=== PATIENT | male | born 1970 | race Caucasian/White ===

== ENCOUNTER 2016-10-07 01:55 | Emergency (ER) | payer SELFPAY ==
[~2016-10-07] VITALS: Ht 182.9 cm; Wt 93.2 kg
[~2016-10-07 01:55] MED LIST: ALBUTEROL0.09 MG/A1 IH; APRESOLINE 220 MG/ML IV; ATIVAN 2MG/ML2 MG/ML IV; AUGMENTIN 875 M1 TAB PO; AZITHROMYCIN250 MG PO; CEPHALEXIN500 M1 PO; ELAVIL50 MG PO; FOLIC ACID 11 MG/TA1 PO; HCTZ 25MG25 MG PO; LABETALOL100 MG PO; LEVAQUIN 7750 MG/151 IV; LOPID600 MG PO; LORTAB 5/500 501 TAB PO; MORPHINEPCA IV; NORCO PO; PERCOCET 5/321 UDTAB PO; PREDNISONE10 MG PO; PROTONIX I40 MG/VIAL IV; SYMBICORT1 AE3 IH; TEGRETOL; THIAMINE 1100 MG/TAB PO; TRANDATE 100MG100 MG PO; VALIUM 10MG10 MG/TAB PO; ZOFRAN INJ4 MG/2 ML IV
[2016-10-07 01:57] VITALS: TEMP 97.7
[2016-10-07] MEDS ORDERED: NORCO 325 MG-51 TAB PO (02:39)
[2016-10-07 03:10] VITALS: BP 145/84; PULSE 87
== END 2016-10-07 03:10 | disposition home or self-care (01) ==
LOC: COL.ER 01:55
DX: S93.602A Unspecified sprain of left foot, initial encounter (principal); I10 Essential (primary) hypertension; J44.9 Chronic obstructive pulmonary disease, unspecified; M19.90 Unspecified osteoarthritis, unspecified site; G50.0 Trigeminal neuralgia; F17.210 Nicotine dependence, cigarettes, uncomplicated; Z98.890 Other specified postprocedural states; W11.XXXA Fall on and from ladder, initial encounter; Y92.69 Other specified industrial and construction area as the place of occurrence of the external cause; Y99.0 Civilian activity done for income or pay
CPT/HCPCS: J2270

== ENCOUNTER 2016-10-14 23:06 | Emergency (ER) | payer SELFPAY ==
[~2016-10-14] VITALS: Ht 182.9 cm; Wt 93.2 kg
[~2016-10-14 23:06] MED LIST changes: +NORCO 325 MG-51 TAB PO
[2016-10-14 23:11] VITALS: TEMP 98.1
[2016-10-15] MEDS ORDERED: NORCO 325 MG-51 TAB PO (00:26)
[2016-10-15] MEDS ORDERED: CRUTCHES MC (00:56)
[2016-10-15 01:08] VITALS: BP 158/78; PULSE 78
== END 2016-10-15 01:15 | disposition home or self-care (01) ==
LOC: COL.ER 23:06
DX: S92.352A Displaced fracture of fifth metatarsal bone, left foot, initial encounter for closed fracture (principal); X58.XXXA Exposure to other specified factors, initial encounter